=== PATIENT | female | born 1955 | race Caucasian/White ===

== ENCOUNTER 2019-12-16 07:26 | Inpatient (IN) ==
[~2019-12-16 07:26] MED LIST: Acetaminophen IV 1,000 MG/100 ML INFUS..BTL IVPB ONE; Scopolamine Patch 1.5 MG PATCH.TD72 TD ONE
[2019-12-16] MEDS ORDERED: CeFAZolin Syr 2,000MG/20 ML 2,000 MG/20 ML SYRINGE IVPB ONE (07:37)
[2019-12-16] MEDS ORDERED: Ringers Solution, Lactated 1,000 ML IVC SCH (07:45)
[2019-12-16] MEDS ORDERED: *HR* HYDROmorphone PF 0.5 MG/0.5 ML SYRINGE IVP PRN (08:08)
[2019-12-16] MEDS ORDERED: *HR* Promethazine 25 MG/ML VIAL IVP PRN (08:08)
[2019-12-16] MEDS ORDERED: Ondansetron 4 MG/2 ML VIAL IVP PRN ×2 (08:08→13:21)
[2019-12-16] MEDS ORDERED: *HR* Meperidine 25 MG/ML SYRINGE IVP PRN (08:08)
[2019-12-16] MEDS ORDERED: Water for inj. (sterile) 30 ML ONE (09:02)
[2019-12-16] MEDS ORDERED: Bupivacaine-MPF 0.25% 10 ML VIAL ONE (11:24)
[2019-12-16] MEDS ORDERED: *HR* Promethazine 25 MG/ML VIAL IM PRN (13:21)
[2019-12-16] MEDS ORDERED: *HR* FentaNYL (PF) 100 MCG/2 ML VIAL IVP PRN (13:21)
[2019-12-16] MEDS ORDERED: Furosemide 40 MG TABLET PO PRN (13:21)
[2019-12-16] MEDS ORDERED: Dextrose Gel 15 GM/37.5 ML TUBE PO PRN ×2 (13:21)
[2019-12-16] MEDS ORDERED: Naloxone 0.4 MG/ML INJ IVP PRN (13:21)
[2019-12-16] MEDS ORDERED: *HR* Dextrose 50 % in Water (Vial) 50 ML VIAL IVP PRN (13:21)
[2019-12-16] MEDS ORDERED: D5% in Water 1,000 ML IVC PRN (13:21)
[2019-12-16] MEDS ORDERED: Ketorolac 15 MG/ML VIAL IVP PRN (13:21)
[2019-12-16] MEDS: Insulin LISPRO 300 UNITS/3 ML VIAL SQ SCH ×2 (16:28→18:36)
[2019-12-16] MEDS: Acetaminophen IV 1,000 MG/100 ML INFUS..BTL IVPB SCH ×2 (16:43→18:04)
[2019-12-16] MEDS: 0.9 % Sodium Chloride 1,000 ML IVC SCH (16:44)
[2019-12-16] MEDS: CeFAZolin 2 GM/120 ML BAG IVPB SCH (16:44)
[2019-12-17] MEDS: Acetaminophen IV 1,000 MG/100 ML INFUS..BTL IVPB SCH ×2 (00:19→05:52)
[2019-12-17] MEDS: CeFAZolin 2 GM/120 ML BAG IVPB SCH (00:19)
[2019-12-17] MEDS: 0.9 % Sodium Chloride 1,000 ML IVC SCH (05:53)
[2019-12-17 06:56] LABS: Hematocrit 23.9 % (35.3-44.9); Hemoglobin 7.8 g/dL (11.5-15.4); Mean Corpuscular HGB Conc 32.6 g/dL (31.6-35.5); Mean Corpuscular Hemoglobin 32.5 pg (28.0-33.3); Mean Corpuscular Volume 99.6 fL (83.0-100.0); Platelet Count 183 K/mcL (140-400); Red Cell Distribution Width 13.2 % (11.5-14.5); White Blood Count 8.8 K/mcL (4.3-11.1)
[2019-12-17 07:14] LABS: BUN/Creatinine Ratio 45 (6-26); Blood Urea Nitrogen 40 mg/dL (8-23); Carbon Dioxide 24 mEq/L (23-29); Chloride 111 mEq/L (98-107); Glucose 100 mg/dL (70-105); Osmolality,Calculated 300 (280-300); Potassium 4.1 mEq/L (3.5-5.1); Sodium 140 mEq/L (136-145); eGFR For African Americans > 60 (> 60); eGFR For Non-African Americans > 60 (> 60)
[2019-12-17] MEDS: lisinopriL 20 MG TABLET PO SCH (07:55)
[2019-12-17] MEDS: hydroCHLOROthiazide 25 MG TABLET PO SCH (07:55)
[2019-12-17] MEDS: (Potassium 99 MG) PO SCH (07:56)
[2019-12-17] MEDS: amLODIPine 5 MG TABLET PO SCH (07:56)
[2019-12-17] MEDS: DIOSMIN COMPLEX NO 1 PO SCH (07:56)
[2019-12-17] MEDS: Insulin LISPRO 300 UNITS/3 ML VIAL SQ SCH ×3 (08:01→16:26)
[2019-12-17] MEDS ORDERED: Famotidine 20 MG TABLET PO PRN (16:36)
[2019-12-18] MEDS: 0.9 % Sodium Chloride 1,000 ML IVC SCH ×2 (02:13→09:43)
[2019-12-18 06:51] VITALS: BP 108/50
[2019-12-18] MEDS: Insulin LISPRO 300 UNITS/3 ML VIAL SQ SCH (09:43)
[2019-12-18] MEDS: lisinopriL 20 MG TABLET PO SCH (09:44)
[2019-12-18] MEDS: (Potassium 99 MG) PO SCH (09:44)
[2019-12-18] MEDS: DIOSMIN COMPLEX NO 1 PO SCH (09:44)
[2019-12-18] MEDS: hydroCHLOROthiazide 25 MG TABLET PO SCH (09:44)
[2019-12-18] MEDS: amLODIPine 5 MG TABLET PO SCH (09:44)
== END 2019-12-18 11:29 | disposition home or self-care (01) | DRG 748 ==
LOC: SAMDAY 07:26 → 3ANU 13:13
PROVIDERS: ADMIT Urology; ATTEND Urology